=== PATIENT | female | born 1960 | race Caucasian/White ===

== ENCOUNTER 2018-08-17 07:23 | Emergency (ER) | payer BC ==
[2018-08-17] MEDS ORDERED: OXYCODONE-ACETAMINOPHEN 5-325 MG TABLET PO ONE (07:50)
[2018-08-17] MEDS ORDERED: KETOROLAC TROMETHAMINE 60 MG/2 ML SDV IM ONE (07:50)
--- NOTE | 2018-08-17 08:53 | RADIOLOGY REPORT (SQ) ---
EXAM DESCRIPTION: HIP BILATERAL COMPLETED DATE/TIME: 08/17/2018 8:43 am REASON FOR STUDY: pain with radiation COMPARISON: None. NUMBER OF VIEWS: Two views TECHNIQUE: AP pelvis and additional frog-leg view of both hips. LIMITATIONS: None. FINDINGS: MINERALIZATION: Normal. HIPS: No acute fracture or dislocation. No worrisome bone lesions. PELVIS AND SACRUM: No acute fracture or dislocation. No worrisome bone lesions. PUBIS AND ISCHIUM: No acute fracture. LOWER LUMBAR SPINE: No significant fin degenerative changes are identified at the level of the pubic symphysis with bony sclerosis dings as visualized. SOFT TISSUES: No findings. OTHER: No other significant finding. IMPRESSION: No significant findings in either hip articulation. Bony sclerosis is identified at the level of the pubic symphysis consistent with degenerative changes. Other findings as noted above TECHNICAL DOCUMENTATION: JOB ID: [id number] [employer]- All Rights Reserved Reading location - IP/workstation name: [email or web address]
--- NOTE | 2018-08-17 08:55 | RADIOLOGY REPORT (SQ) ---
EXAM DESCRIPTION: L SPINE WHOLE COMPLETED DATE/TIME: 08/17/2018 8:43 am REASON FOR STUDY: pain in lower back with radiation down both legs COMPARISON: None. NUMBER OF VIEWS: Five views including obliques. TECHNIQUE: AP, lateral, oblique, and sacral radiographic images acquired of the lumbar spine. LIMITATIONS: None. FINDINGS: MINERALIZATION: Normal. SEGMENTATION: Normal. No transitional anatomy. ALIGNMENT: Normal. VERTEBRAE: Maintained height. No fracture or worrisome bone lesion. DISCS: Preserved height. Minimal anterior osteophytic lipping is identified. POSTERIOR ELEMENTS: Pedicles and facets are intact. No pars defect or posterior arch defects. HARDWARE: None in the spine. PARASPINAL SOFT TISSUES: Normal. PELVIS: Intact as visualized. No fractures or worrisome bone lesions. SI joints intact. OTHER: No other significant finding. IMPRESSION: No significant vertebral compression or disc space reduction is seen. There is minimal anterior osteophytic lipping. Other findings as noted above TECHNICAL DOCUMENTATION: JOB ID: [id number] [employer]- All Rights Reserved Reading location - IP/workstation name: [email or web address]
--- NOTE | 2018-08-17 09:22 | ER Document Report ---
ED General Pain - General Chief Complaint: Leg Pain Stated Complaint: LEG PAIN Time Seen by Provider: 08/17/18 07:36 Mode of Arrival: Ambulatory Information source: Patient, Relative Notes: Patient is a 58-year-old female comes emergency room complaining of low back pain with radiation down both legs. Patient states that she has low back pain is been going on for approximately last month. But she had some major radiation of pain down her both legs which started last night while at work. She states that it just came on all of a sudden and that the pain radiated down her legs and she had a difficult time even standing up after sitting down. She denies any recent known trauma. She works at [employer]. She has a history of restless leg syndrome which she takes gabapentin for she denies any loss of urine or stool. She admits to drinking beer daily just enough to calm her down so she can go to sleep. He has a history of current menopause transition. And she denies smoking. She states his pain is relatively new she is never had a back injury before in her life. She does not know where it occurred or if it is related to her work. Again she does not know of any known trauma. TRAVEL OUTSIDE OF THE [place] IN LAST 30 DAYS: No - HPI Onset: Other - Back pain starting 1 month ago with radiation down both posterior legs last night Onset/Duration: Gradual, Worse Quality of pain: Sharp, Stabbing, Throbbing Severity: Severe Pain Level: 5 Context: New onset Typical of prior episodes of painful crisis: No Associated symptoms: Muscle aches Exacerbated by: Sitting, Standing, Movement, Walking Relieved by: Supine Similar symptoms previously: No Recently seen / treated by doctor: No - Related Data Allergies/Adverse Reactions: No Known Allergies Allergy (Verified 08/17/18 07:23) Past Medical History - General Information source: Patient - Social History Smoking Status: Never Smoker Cigarette use (# per day): No Chew tobacco use (# tins/day): No Smoking Education Provided: No Frequency of alcohol use: None Drug Abuse: None Family History: Reviewed & Not Pertinent Patient has suicidal ideation: No Patient has homicidal ideation: No Renal/ Medical History: Denies: Hx Peritoneal Dialysis GI Medical History: Reports: Hx Hiatal Hernia Past Surgical History: Reports: Hx Section Review of Systems - Review of Systems Constitutional: No symptoms reported EENT: No symptoms reported Cardiovascular: No symptoms reported Respiratory: No symptoms reported Gastrointestinal: No symptoms reported Genitourinary: No symptoms reported Female Genitourinary: No symptoms reported Musculoskeletal: Back pain, Muscle pain Skin: No symptoms reported Hematologic/Lymphatic: No symptoms reported Neurological/Psychological: No symptoms reported -: Yes All other systems reviewed and negative Physical Exam - Vital signs Vitals: Temp Pulse Resp BP Pulse Ox 97.6 F 66 18 152/72 H 98 08/17/18 07:26 08/17/18 07:26 08/17/18 07:26 08/17/18 07:26 08/17/18 07:26 Interpretation: Hypertensive - Notes Notes: PHYSICAL EXAMINATION: GENERAL: Patient is a well-nourished well-developed 58-year-old female morbidly obese in no apparent distress on physical exam today however she does appear to be somewhat uncomfortable and having a difficult time finding a position of comfort. HEAD: Atraumatic, normocephalic. EYES: Pupils equal round and reactive to light, extraocular movements intact, conjunctiva are normal. NECK: Normal range of motion, supple without lymphadenopathy LUNGS: Breath sounds clear to auscultation bilaterally and equal. No wheezes rales or rhonchi. HEART: Regular rate and rhythm without murmurs ABDOMEN: Soft, nontender, nondistended abdomen. No guarding, no rebound. No masses appreciated. Female : deferred Musculoskeletal: Examination patient's lower body from the waist down show she has some reproducible tenderness around the lower lumbar spine area. Appears to be paravertebral tenderness in the same localized area. Pain and discomfort extending into bilateral buttocks. Palpation of the sciatic notches in the area show a increased pain with radiation down the posterior portion of the legs. This is bilaterally. Patient was tested for strength in all planes from sitting with the lower extremities extension and flexion against resistance all good. Also she had good resistance with inward motion against resistance as well as motion of the knees with resistance all good muscle tone. Patient's DTRs were also noted to be normal. Vascular exam also showed that she has good pulses in the dorsalis pedis of both feet and good popliteal pulses and good femoral pulses. NEUROLOGICA Normal speech, normal gait. Normal sensory, motor exams, rectal exam of the sphincter tone showed good sphincter tone. Further neuro exam shows patient has no saddle paresthesia she is able to discriminate against light touch bilateral lower inner thighs outer thighs and upper posterior thighs. Also noted within the lower extremities and the lower legs good sensation circumferentially. And feet have good strength against resistance in both flexion and extension. PSYCH: Normal mood, normal affect. SKIN: Warm, Dry, normal turgor, no rashes or lesions noted. Course - Re-evaluation Re-evalutation: 08/17/18 09:22 At present patient's x-rays were all negative for any acute findings. She is presenting like a possibility of a herniated disc. She has no neurologic symptoms to indicate any type of a saddle paresthesia she is walking normally and has good heel to toe. At this point we will treat her for new onset sciatica bilateral is unusual but patient does present that way. I will place her on a little steroid taper. I will also place her on some muscle relaxers. - Vital Signs Vital signs: Temp Pulse Resp BP Pulse Ox 97.6 F 66 18 152/72 H 98 08/17/18 07:26 08/17/18 07:26 08/17/18 07:26 08/17/18 07:26 08/17/18 07:26 Discharge - Discharge Clinical Impression: Sciatica Qualifiers: Laterality: bilateral Qualified Code(s): M54.31 - Sciatica, right side; M54.32 - Sciatica, left side; M54.32 - Sciatica, left side Disposition: HOME, SELF-CARE Instructions: Sciatica ([facility]) Additional Instructions: Home today rest. Ice to the low back 3 times today and tomorrow. Light stretching medication as prescribed. If pain continues on after the weekend I highly suggest you contact your primary care provider and get reevaluated and possibly set up for an MRI outpatient. If you have any difficulty over the weekend if you have any signs and symptoms of becoming off balance or loss of urine or stool that leaks out without any effort return to ER at once. I am also to give you the name of the orthopedic customer response representative today you may try to contact his office to see if he can accommodate you if the pain continues to get worse however I would highly suggest talk to your primary first if at all possible if were leading into the direction of having an MRI done outpatient that way when you go to see the orthopedist if need to be you can take the results of the MRI with you. If you but she has get much better then it is just more of a temporary thing and it may just not flareup again for an extended period time. It is difficult to say that this kind of discomfort and pain can go away just as fast as he came or may be lingering for a long time. Prescriptions: Hydrocodone/Acetaminophen [[place] 5-325 mg Tablet] 1 tab PO Q6 PRN #8 tablet PRN Reason: Methocarbamol [Robaxin 750 mg Tablet] 750 mg PO BID PRN #20 tablet PRN Reason: Prednisone 5 mg PO ASDIR PRN 6 Days #1 tab.ds.pk PRN Reason: Forms: Elevated Blood Pressure, Return to Work Referrals: JACKSON GEORGE MD [ACTIVE STAFF] - Follow up as needed
[2018-08-17 09:48] VITALS: BP 140/70
== END 2018-08-17 09:48 | disposition home or self-care (01) ==
LOC: ER 07:23
DX: M54.32 Sciatica, left side (principal); M54.31 Sciatica, right side
CPT/HCPCS: 99283; 96372; 72110; 73522; J1885